=== PATIENT | female | born 1970 | race Caucasian/White ===

== ENCOUNTER 2022-04-30 08:32 | Outpatient (CLI) | payer BC, SELFPAY | END 2022-04-30 08:33 | disposition home or self-care (01) | PROVIDERS: PCP Family Medicine; Visit Provider Surgery | DX: Z15.09 Genetic susceptibility to other malignant neoplasm (principal); K31.89 Other diseases of stomach and duodenum; K63.5 Polyp of colon; Z85.038 Personal history of other malignant neoplasm of large intestine | CPT/HCPCS: 43239; 45385; 88305; 99153; J1200; J2250; J2405; J3010 ==

== ENCOUNTER 2024-05-25 09:17 | Outpatient (CLI) | payer BC, SELFPAY ==
--- NOTE | 2024-05-25 11:00 | P.ANES_ITS ---
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
--- NOTE | 2024-05-25 11:00 | W.ANESCHARGE ---
Anesthesia Charges Start Date/Time Anesthesia Start Date: 05/25/24 Anesthesia Start Time: 10:11 Stop Date/Time Anesthesia Stop Date: 05/25/24 Anesthesia Stop Time: 10:53 Coding CPT Codes CPT Codes: ANES UPR LWR GI NDSC PX - 90568 ([id number]) P1 - NORMAL HEALTHY PATIENT, QK - ADOBE ARCHITECT 2-4 CNCRNT ANES PROC, QX - MOLD PRESSER SVC W/ MED DIRECTION
--- NOTE | 2024-05-25 11:08 | P.ANES_ITS ---
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
--- NOTE | 2024-05-25 11:08 | W.ANESCHARGE ---
Anesthesia Charges Start Date/Time Anesthesia Start Date: 05/25/24 Anesthesia Start Time: 10:11 Stop Date/Time Anesthesia Stop Date: 05/25/24 Anesthesia Stop Time: 10:53 Coding CPT Codes CPT Codes: ANES UPR LWR GI NDSC PX - 30092 ([id number]) P1 - NORMAL HEALTHY PATIENT, QK - ELECTRICAL ENGINEERING INTERN 2-4 CNCRNT ANES PROC, QX - FICTION AND NONFICTION PROSE WRITER SVC W/ MED DIRECTION
== END 2024-05-25 09:18 | disposition home or self-care (01) ==
LOC: OP CLINIC 09:18
PROVIDERS: PCP Family Medicine; Visit Provider Surgery
DX: Z12.11 Encounter for screening for malignant neoplasm of colon (principal); Z85.038 Personal history of other malignant neoplasm of large intestine; Z15.09 Genetic susceptibility to other malignant neoplasm; K31.7 Polyp of stomach and duodenum
CPT/HCPCS: 00813; 43239; 45378; 88305; J2704; J3490